=== PATIENT | male | born 1960 | race Caucasian/White ===

== ENCOUNTER 2021-10-06 17:42 | Emergency (ER) | payer MEDICARE, MEDICAID ==
[~2021-10-06] VITALS: Ht 167.6 cm; Wt 86.2 kg
[2021-10-06] MEDS ORDERED: RIVA20TA PO (21:25)
[2021-10-06 23:38] VITALS: BP 126/98
== END 2021-10-06 23:38 | disposition home or self-care (01) ==
LOC: ER 17:42 → EDBD 17:42 → ER 23:38
DX: R06.02 Shortness of breath (principal); F17.210 Nicotine dependence, cigarettes, uncomplicated; Z76.0 Encounter for issue of repeat prescription
CPT/HCPCS: 93005